=== PATIENT | male | born 1940 | race Caucasian/White ===

== ENCOUNTER 2016-09-13 10:16 | Outpatient (CLI) | payer MEDICARE, OTHER | END 2016-09-13 10:17 | LOC: LABRHC 10:16 | PROVIDERS: ATTEND Family Medicine | DX: N39.0 Urinary tract infection, site not specified (principal) | CPT/HCPCS: 87086 ==

== ENCOUNTER 2017-04-12 09:41 | Outpatient (CLI) | payer MEDICARE, OTHER ==
[2017-04-12 10:20] LABS: APPEARANCE,URINE Slightly Cloudy (CLEAR); COLOR,URINE Orange (YELLOW); OCCULT BLOOD,URINE 1+ (NEGATIVE)
[2017-04-12 10:21] LABS: BASOPHILS % 0.2 (0.0-1.5); EOSINOPHILS % 0.6 % (0.0-6.8); MEAN CORPUSCULAR HEMOGLOBIN 30.4 pg (28.0-34.0); MEAN CORPUSCULAR VOLUME 96.4 fl (80.0-100.0); MONOCYTES % 4.3 % (0.0-11.0); NEUTROPHILS # 9.3 # k/uL (1.4-7.7)
--- NOTE | 2017-04-12 10:36 | Diagnostic Imaging Report ---
OG GUERRERO [facility] [address] [facility] [address] [place] [address]. [address] Report Submission Date: Apr 12, 2017 10:23:03 AM PLUCK TRIMMER Patient Study Name: COLEEN MIRANDA Date: Apr 12, 2017 9:52:49 AM PLUCK TRIMMER Modality Type: CR Gender: M Description: CHEST : 36 Institution: [facility] Physician: OG GUERRERO Examination: PA and lateral chest. History: Evaluate lung griggs. Comparison exam: None provided Findings: PA lateral chest demonstrate a normal cardiac silhouette. Tortuous aorta. Mild parenchymal haziness inferior right hilum. No blunting of the costophrenic margins. Osseous structures demonstrate degenerative changes. Impression: Mild parenchymal haziness right inferior hilum. No effusion. Electronically signed on Apr 12, 2017 10:23:03 AM PLUCK TRIMMER by: Vignesh ARGUETA
[2017-04-12 10:52] LABS: eGFR (African) > 60; eGFR (Non-African) 52
== END 2017-04-12 09:42 ==
LOC: LAB 09:41
PROVIDERS: ATTEND Family Medicine
DX: J18.9 Pneumonia, unspecified organism (principal); Z85.79 Personal history of other malignant neoplasms of lymphoid, hematopoietic and related tissues; I10 Essential (primary) hypertension; R30.0 Dysuria
CPT/HCPCS: 36415; 71020; 80053; 81002; 85025

== ENCOUNTER 2017-06-07 10:21 | Outpatient (CLI) | payer MEDICARE, OTHER ==
[2017-06-07 10:59] LABS: BASOPHILS % 0.8 (0.0-1.5); EOSINOPHILS % 1.9 % (0.0-6.8); MEAN CORPUSCULAR VOLUME 94.8 fl (80.0-100.0); MONOCYTES % 4.2 % (0.0-11.0); NEUTROPHILS # 5.2 # k/uL (1.4-7.7)
--- NOTE | 2017-06-07 11:18 | Diagnostic Imaging Report ---
KD PEREZ [facility] [address] [facility] [address] [place] [address]. [id number] Report Submission Date: Jun 07, 2017 11:03:36 AM PHOTO STYLIST Patient Study Name: COLEEN MIRANDA Date: Jun 07, 2017 10:51:45 AM PHOTO STYLIST Modality Type: CR Gender: M Description: CHEST : 36 Institution: [facility] Physician: KD PEREZ Examination: Portable chest History: Evaluate lungs Comparison exam: 12 April 2017 Findings: Single view of the chest demonstrates a normal cardiac and mediastinal silhouette. Diffuse parenchymal haziness involving the right lower lung with blunting of the costophrenic margin. Right apical capping. Possible mild parenchymal fullness near the cardiac apex. Osseous structures are appropriate for age. Impression: Significant right hemithorax infiltrate with effusion. Possible small infiltrate near the cardiac apex. Electronically signed on Jun 07, 2017 11:03:36 AM PHOTO STYLIST by: Vignesh ARGUETA
[2017-06-07 12:26] LABS: eGFR (African) > 60; eGFR (Non-African) > 60
== END 2017-06-07 10:22 ==
LOC: LAB 10:21
PROVIDERS: ATTEND Family Medicine
DX: R06.02 Shortness of breath (principal)
CPT/HCPCS: 71020; 80048; 83880; 85025; 85379

== ENCOUNTER 2017-06-12 11:14 | Outpatient (CLI) | payer MEDICARE, OTHER ==
--- NOTE | 2017-06-12 14:51 | Diagnostic Imaging Report ---
KD ORTEGA [facility] [address] [facility] [address] [address] Report Submission Date: Jun 12, 2017 12:18:20 PM TECHNICAL ARTIST Patient Study Name: COLEEN MIRANDA Date: Jun 12, 2017 11:32:33 AM TECHNICAL ARTIST Modality Type: US Gender: M Description: BILAT US DVT : 36 Institution: [facility] Physician: KD ORTEGA Examination: Ultrasound vein History: Leg discomfort Findings: Sonographic evaluation of the lower extremity venous system from the groin to the popliteal fossa inclusive bilaterally. Luminal filling defect within the distal left popliteal vein. No compressibility. Remaining venous structures demonstrate normal compressibility. No other luminal filling defect. Normal waveforms and response to augmentation. No popliteal region fluid collection. Impression: Left popliteal vein thrombus. No evidence for other deep venous thrombosis. Electronically signed on Jun 12, 2017 12:18:20 PM TECHNICAL ARTIST by: Vignesh Mesa Message left for Dr. Ortega at 1220 hours on 12 June 2017 CDT Addendum electronically signed by Vignesh Mesa on June 12, 2017 12:20:51 PM TECHNICAL ARTIST [facility]
--- NOTE | 2017-06-12 14:52 | Diagnostic Imaging Report ---
KD PEREZ [facility] [place] [facility] [address] [facility] [address] [place], [place]. [address] Report Submission Date: Jun 12, 2017 11:52:09 AM TRAINING AND DEVELOPMENT OFFICER Patient Study Name: COLEEN MIRANDA Date: Jun 12, 2017 11:22:46 AM TRAINING AND DEVELOPMENT OFFICER Modality Type: CR Gender: M Description: CHEST : 36 Institution: [facility] [place] [facility] Physician: KD PEREZ Examination: PA and lateral chest. History: Evaluate lung griggs. Comparison exam: 07 June 2017 Findings: PA lateral chest demonstrate a normal cardiac and mediastinal silhouette. Continued parenchymal infiltrate involving the right hemithorax with blunting of the costophrenic margin. Improved cardiac apex hazy infiltrate. No blunting of the left costophrenic margin. Osseous structures are appropriate for age. Impression: Persistent right hemithorax infiltrate/effusion. Electronically signed on Jun 12, 2017 11:52:09 AM TRAINING AND DEVELOPMENT OFFICER by: Vignesh ARGUETA
--- NOTE | 2017-06-12 14:52 | Diagnostic Imaging Report ---
KD PEREZ [facility] [address] [facility] [address] [place], [place]. [address] Report Submission Date: Jun 12, 2017 12:53:02 PM HOSPICE CONSULTANT Patient Study Name: COLEEN MIRANDA Date: Jun 12, 2017 12:22:12 PM HOSPICE CONSULTANT Modality Type: CT\SR Gender: M Description: CT ANGIOGRAPHY CHEST 7 : 36 Institution: [facility] Physician: KD PEREZ Examination: CT chest pulmonary embolism History: Chest discomfort. History deep venous thrombosis. Comparison exam: Plain film chest dated 12 June 2017 Technique: CT chest pulmonic pulmonary embolism protocol. Findings: No evidence for luminal filling defect within the main pulmonary arteries to the 3rd order branch vessels bilaterally. Thoracic aorta without aneurysmal dilation. No evidence for dissection flap. Lungs demonstrate significant bibasilar inflammatory consolidations, right greater than left. Right posterior pleural effusion. No mediastinal or amy mass or pathologic adenopathy. Cardiac silhouette not enlarged. No pericardial effusion. Osseous structures demonstrate degenerative changes. Lower neck structures and axilla regions are without gross irregularity. Large left intrarenal collecting system calcifications. Gallstones. Impression: No evidence for pulmonary embolism by CT criteria. No evidence for thoracic aortic dissection or abnormality. Significant, right greater than left, lung base consolidations and effusions. Large left intrarenal collecting system calcifications - not fully evaluated. Gallstones. Electronically signed on Jun 12, 2017 12:53:02 PM HOSPICE CONSULTANT by: Vignesh ARGUETA
== END 2017-06-12 11:15 ==
LOC: RAD 11:14
PROVIDERS: ATTEND Family Medicine
DX: R22.43 Localized swelling, mass and lump, lower limb, bilateral (principal); R06.02 Shortness of breath
CPT/HCPCS: 71020; 71275; 93970; Q9967

== ENCOUNTER 2017-06-13 11:06 | Outpatient (CLI) | payer MEDICARE, OTHER | END 2017-06-13 11:07 | LOC: CARD 11:06 | PROVIDERS: ATTEND Internal Medicine Cardiovascular Disease | DX: I50.21 Acute systolic (congestive) heart failure (principal) ==

== ENCOUNTER → 2017-06-16 | Outpatient (CLI) | payer MEDICARE, OTHER ==
[2017-06-16 11:52] LABS: MEAN CORPUSCULAR HEMOGLOBIN 29.8 pg (28.0-34.0); MEAN CORPUSCULAR VOLUME 97.5 fl (80.0-100.0)
--- NOTE | 2017-06-16 12:42 | Diagnostic Imaging Report ---
KD PEREZ [facility] [address] [facility] [address] [place], [place]. [address] Report Submission Date: Jun 16, 2017 11:54:47 AM TILE BURNER Patient Study Name: COLEEN MIRANDA Date: Jun 16, 2017 11:06:44 AM TILE BURNER Modality Type: CT\SR Gender: M Description: CT ABD & PELVIS W/O CO : 36 Institution: [facility] Physician: KD PEREZ Examination: CT Abdomen/pelvis History: Hematuria. Comparison exams: CT chest dated 12 June 2017 Technique: CT Abdomen/pelvis without contrast protocol. Findings: Significant bilateral renal cortical and calyceal calcifications. Large calcifications involving the left intrarenal collecting system: Largest measuring 1.9 cm. Large right intrarenal collecting system calcification measuring 2.2 cm. Ureters do not appear to be dilated in their course through the abdomen and pelvis. No obvious central calcification. Calcifications involving the posterior bladder region though this area is not well visualized due to streak artifact from right hip prosthesis. Liver, spleen, adrenals, and pancreas are without gross irregularity. Gallstones. No adjacent inflammation. Splenic cyst. Abdominal aorta demonstrates peripheral are sclerotic disease. No aneurysm. Cardiac silhouette is not enlarged. Mild pericardial thickening. Bowel unopacified limiting evaluation. No mesenteric inflammatory changes or free fluid. Mid abdominal hernia: omental bowel involvement without obstruction. Few mildly prominent loops of small bowel within the lower pelvis. Stool within the large bowel limiting sensitivity. Surgical changes in the region of the cecum. Osseous structures demonstrate degenerative changes. Lung bases demonstrate, right greater left, parenchymal infiltrates. Impression: Bilateral nephrolithiasis. 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 Bladder wall calcification - not well visualized due to artifact. Gallstones. Right greater than left, lung base consolidations/infiltrates. Correlate with recent CT chest examination. Few mild prominence of small bowel within the lower pelvis - possible mild localized enteritis. Upper midline hernia with bowel and omental involvement without obstruction Lumbar degenerative changes. Right hip prosthesis. Electronically signed on Jun 16, 2017 11:54:47 AM TILE BURNER by: Vignesh ARGUETA
== END ==
LOC: RAD 10:55
PROVIDERS: ATTEND Family Medicine
DX: R31.0 Gross hematuria (principal)
CPT/HCPCS: 36415; 74176; 85027; G0103

== ENCOUNTER 2017-12-26 14:03 | Outpatient (CLI) | payer MEDICARE, OTHER ==
--- NOTE | 2017-12-26 14:29 | Diagnostic Imaging Report ---
[facility] [address] [facility] [place] [address]. [address] Report Submission Date: Dec 26, 2017 2:27:33 PM CDT Patient Study Name: COLEEN MIRANDA Date: Dec 26, 2017 2:01:37 PM CDT Modality Type: DX Gender: M Description: CHEST : 36 Institution: [facility] Physician: KD PEREZ Pa and lateral chest Clinical history : Coughing Comparison none Technique pa and lateral upright Findings: T lung griggs are hyperinflated. There is a left inferior hilar density measuring about 3.5 cm suspicious for a mass. CT of the chest is recommended. The central pulmonary arteries are prominent. Cannot rule out pulmonary hypertension. There is thoracic spondylosis. No pleural effusion is seen. The aorta is tortuous and calcified Impression: Possible left infrahilar mass. CT the chest is recommended Tortuous calcified aortic arch Hyperinflation. Prominent central pulmonary arteries Electronically signed on Dec 26, 2017 2:27:33 PM CDT by: Ken ARGUETA
== END 2017-12-26 14:04 ==
LOC: RAD 14:03
PROVIDERS: ATTEND Family Medicine
DX: R05 Cough (principal)
CPT/HCPCS: 71046

== ENCOUNTER 2017-12-27 09:30 | Outpatient (CLI) | payer MEDICARE, OTHER ==
--- NOTE | 2017-12-27 18:48 | Diagnostic Imaging Report ---
KD PEREZ [facility] [address] [facility] [address] [address] Report Submission Date: Dec 27, 2017 5:18:26 PM CDT Patient Study Name: COLEEN MIRANDA Date: Dec 27, 2017 3:55:21 PM CDT Modality Type: CT\KO\SR Gender: M Description: CT CHEST W/ CONTRAST : 36 Institution: [facility] Physician: KD PEREZ CT chest with intravenous contrast HISTORY Follow-up abnormal chest radiograph TECHNIQUE Images through the chest were obtained following intravenous contrast administration. FINDINGS There is no pneumothorax. There is a trace left pleural effusion. There is a 47 mm left lower lobe lung mass. Appearance is most consistent with malignancy and further evaluation is recommended. There is a 5 mm right lower lobe lung nodule. There is extensive mediastinal and hilar adenopathy. Moderate bilateral axillary adenopathy is also present. Included portions of upper abdomen also demonstrate extensive retroperitoneal and mesenteric adenopathy. Because of extensive adenopathy, lymphoma should be considered. The aorta enhances normally. Large bilateral renal calculi are present. Multiple gallstones are noted within the gallbladder. The spleen is not enlarged. IMPRESSION Extensive mediastinal, hilar, axillary, retroperitoneal and mesenteric adenopathy, suspicious for lymphoma. Left lower lobe lung mass. Malignancy is not excluded and further evaluation is recommended. Bilateral nephrolithiasis. Cholelithiasis. Electronically signed on Dec 27, 2017 5:18:26 PM CDT by: Hayden ARGUETA
== END 2017-12-27 09:32 ==
LOC: RAD 09:30
PROVIDERS: ATTEND Family Medicine
DX: R91.8 Other nonspecific abnormal finding of lung field (principal)
CPT/HCPCS: 71260; 80048; Q9967